=== PATIENT | female | born 1985 | race American Indian/Alaskan Native ===

== ENCOUNTER 2017-03-11 14:06 | Emergency (ER) | payer BC, OTHER ==
[2017-03-11] MEDS ORDERED: DUONEB *Not for PRN Use IH ONE (14:24)
--- NOTE | 2017-03-11 14:27 | Emergency Department Report ---
Chief Complaint: Chest Pain Stated Complaint: CHEST PAIN Time Seen by Provider: 03/11/17 14:21 - HPI History of Present Illness: pt c/o cp. pt states she has had cp recently and been seen by registered clinical dietitian PT denies hx of asthma - ROS Review of Systems: + dizziness + chest pain - Exam Physical Exam: RRR + nasal flaring MSE screening note: Focused history and physical exam performed. Due to findings the following was ordered: ekg, xr, labs, med ED Disposition for MSE Condition: Stable
[2017-03-11 14:39] VITALS: BP 125/87
[2017-03-11 14:54] LABS: Basophils % (Auto) 0.6 % (0.0-1.8); Eosinophils % (Auto) 1.4 % (0.0-4.3); Hematocrit 34.9 % (30.3-42.9); Hemoglobin 11.4 gm/dl (10.1-14.3); Mean Corpuscular HGB Conc 33 % (30-34); Mean Corpuscular Hemoglobin 27 pg (28-32); Mean Corpuscular Volume 81 fl (79-97); Platelet Count 340 K/mm3 (140-440); Red Blood Count 4.29 M/mm3 (3.65-5.03); Red Cell Distribution Width 15.2 % (13.2-15.2); White Blood Count 8.6 K/mm3 (4.5-11.0)
[2017-03-11 14:58] LABS: INR 1.05 (0.87-1.13); Partial Thromboplastin Time 30.9 Sec. (24.2-36.6)
--- NOTE | 2017-03-11 15:10 | XRay Report ---
CHEST 2 VIEWS INDICATION: Chest pain. COMPARISON: None similar at this institution. FINDINGS: PA and lateral chest radiographs demonstrate normal cardiomediastinal silhouette. Clear lungs. Intact bones. CONCLUSION: No acute disease in the chest. Thank you for the opportunity to participate in this patient's care.
[2017-03-11 15:13] LABS: Alanine Aminotransferase 19 units/L (7-56); Albumin/Globulin Ratio 1.1 %; Alkaline Phosphatase 85 units/L (35-129); Anion Gap 22 mmol/L; BUN/Creatinine Ratio 18.33; Blood Urea Nitrogen 11 mg/dL (7-17); Calcium 9.3 mg/dL (8.4-10.2); Carbon Dioxide 20 mmol/L (22-30); Chloride 100.8 mmol/L (98-107); Glucose 89 mg/dL (65-100); Potassium 3.6 mmol/L (3.6-5.0); Sodium 139 mmol/L (137-145); Total Protein 7.5 g/dL (6.3-8.2)
--- NOTE | 2017-03-24 23:46 | ED Elopement Review ---
ED Pt Elopement review - Results review Lab results: Laboratory Tests 03/11/17 03/11/17 03/11/17 14:33 14:33 14:33 WBC 8.6 RBC 4.29 Hgb 11.4 Hct 34.9 MCV 81 MCH 27 L MCHC 33 RDW 15.2 Plt Count 340 Lymph % (Auto) 28.7 Lamar % (Auto) 8.5 H Eos % (Auto) 1.4 Baso % (Auto) 0.6 Lymph # 2.5 Lamar # 0.7 Eos # 0.1 Baso # 0.1 Seg Neutrophils % 60.8 Seg Neutrophils # 5.2 PT 13.6 INR 1.05 APTT 30.9 Sodium 139 Potassium 3.6 Chloride 100.8 Carbon Dioxide 20 L Anion Gap 22 BUN 11 Creatinine 0.6 L Estimated GFR > 60 BUN/Creatinine Ratio 18.33 Glucose 89 Calcium 9.3 Total Bilirubin 0.40 AST 17 ALT 19 Alkaline Phosphatase 85 Troponin T < 0.010 NT-Pro-B Natriuret Pep Total Protein 7.5 Albumin 4.0 Albumin/Globulin Ratio 1.1 03/11/17 14:33 WBC RBC Hgb Hct MCV MCH MCHC RDW Plt Count Lymph % (Auto) Lamar % (Auto) Eos % (Auto) Baso % (Auto) Lymph # Lamar # Eos # Baso # Seg Neutrophils % Seg Neutrophils # PT INR APTT Sodium Potassium Chloride Carbon Dioxide Anion Gap BUN Creatinine Estimated GFR BUN/Creatinine Ratio Glucose Calcium Total Bilirubin AST ALT Alkaline Phosphatase Troponin T NT-Pro-B Natriuret Pep 30.97 Total Protein Albumin Albumin/Globulin Ratio - Call Back decision Pt Call Back Decision: Pt to F/U with PMD
== END 2017-03-11 17:04 | disposition left against medical advice (07) ==
LOC: ED 14:06
DX: R07.9 Chest pain, unspecified (principal); Z53.21 Procedure and treatment not carried out due to patient leaving prior to being seen by health care provider
CPT/HCPCS: 36415; 71020; 80053; 83880; 84484; 85025; 85610; 85730; 93005; 93010

== ENCOUNTER 2019-02-02 12:08 | Emergency (ER) | payer OTHER, MEDICARE ==
[2019-02-02 12:24] VITALS: BP 162/109
--- NOTE | 2019-02-02 12:24 | Emergency Department Report ---
Blank Doc - Documentation Documentation: 33 y o female with hx of HTN on meds presents with Chestpain x 3 days unresolvi ng 6/10 intensity labs, cxr
[2019-02-02 13:12] LABS: Basophils % (Auto) 0.5 % (0.0-1.8); Eosinophils # (Auto) 0.2 K/mm3 (0.0-0.4); Eosinophils % (Auto) 2.8 % (0.0-4.3); Hematocrit 33.5 % (30.3-42.9); Hemoglobin 11.1 gm/dl (10.1-14.3); Lymphocytes # (Auto) 1.6 K/mm3 (1.2-5.4); Mean Corpuscular HGB Conc 33 % (30-34); Mean Corpuscular Volume 86 fl (79-97); Monocytes # (Auto) 0.4 K/mm3 (0.0-0.8); Monocytes % (Auto) 7.9 % (0.0-7.3); Platelet Count 296 K/mm3 (140-440); Red Cell Distribution Width 14.1 % (13.2-15.2)
--- NOTE | 2019-02-02 13:18 | Emergency Department Report ---
ED Chest Pain HPI - General Chief Complaint: Chest Pain Stated Complaint: CHEST PAIN/LIGHT HEADED Time Seen by Provider: 02/02/19 12:22 Source: patient Mode of arrival: Ambulatory Limitations: No Limitations - History of Present Illness Initial Comments: 33 y o female with hx of HTN on meds presents with Chest pain x 3 days. Patient reports pain is to the left chest. Lightheadedness today. Patient denies any nausea vomiting or headache or radiation of pain. She reports her pain is at rest sharp. Patient has a surgery on the parathyroid. She has a past medical history of hypertension primary care provider is Dr. Jauregui who has not seen him in over a year. Onset/Timin -: days(s) Pain Location: left chest Severity scale (0 -10): 6 Quality: sharp Consistency: intermittent Improves With: nothing Worsens With: nothing Treatments Prior to Arrival: none Aspirin use within the Past 7 Days: (0) No - Related Data On Oral Contraceptives: No Home Medications Medication Instructions Recorded Confirmed Last Taken hydroCHLOROthiazide [Hctz] 25 mg PO QDAY 06/21/14 06/21/14 06/21/14 Allergies Allergy/AdvReac Type Severity Reaction Status Date / Time No Known Allergies Allergy Unverified 06/21/14 09:49 Heart Score - HEART Score History: Slightly suspicious EKG: Normal Age: < 45 Risk factors: 1-2 risk factors Troponin: 1-3x normal limit HEART Score: 2 ED Review of Systems ROS: Stated complaint: CHEST PAIN/LIGHT HEADED Other details as noted in HPI Comment: All other systems reviewed and negative ED Past Medical Hx - Past Medical History Hx Hypertension: Yes Additional medical history: Parathyroid - Surgical History Additional Surgical History: Parathyroidectomy - Social History Smoking Status: Never Smoker Substance Use Type: None - Medications Home Medications: Home Medications Medication Instructions Recorded Confirmed Last Taken Type hydroCHLOROthiazide [Hctz] 25 mg PO QDAY 06/21/14 06/21/14 06/21/14 History ED Physical Exam - General Limitations: No Limitations General appearance: alert, in no apparent distress - Head Head exam: Present: atraumatic, normocephalic - Eye Eye exam: Present: normal appearance - ENT ENT exam: Present: mucous membranes moist - Neck Neck exam: Present: normal inspection - Respiratory Respiratory exam: Present: normal lung sounds bilaterally. Absent: respiratory distress - Cardiovascular Cardiovascular Exam: Present: regular rate, normal rhythm. Absent: systolic murmur, diastolic murmur, rubs, gallop - GI/Abdominal GI/Abdominal exam: Present: soft, normal bowel sounds - Extremities Exam Extremities exam: Present: normal inspection - Back Exam Back exam: Present: normal inspection - Neurological Exam Neurological exam: Present: alert, oriented X3 - Psychiatric Psychiatric exam: Present: normal affect, normal mood - Skin Skin exam: Present: warm, dry, intact, normal color. Absent: rash ED Course Vital Signs 02/02/19 12:22 Temperature 98.2 F Pulse Rate 62 Respiratory 20 Rate Blood Pressure 162/109 O2 Sat by Pulse 99 Oximetry INO score - Ino Score Age > 65: (0) No Aspirin use within the Past 7 Days: (0) No 3 or more CAD Risk Factors: (0) No 2 or more Angina events in past 24 hrs: (0) No Known CAD with more than 50% Stenosis: (0) No Elevated Cardiac Markers: (0) No ST Deviation Greater than 0.5mm: (0) No INO Score: 0 ED Medical Decision Making - Lab Data Result diagrams: 02/02/19 12:51 - Radiology Data Radiology results: report reviewed Patient: JAZZ ORTEGA MR#: [id number] : 1985 Acct:[id number] Age/Sex: 33 / F ADM Date: 02/02/19 Loc: ED Attending Dr: Ordering Physician: SARAH SALAS Date of Service: 02/02/19 Procedure(s): XR chest routine 2V Accession Number(s): [id number] cc: SARAH SALAS Fluoro Time In Minutes: CHEST 2 VIEWS INDICATION: Chest pain for 3 days. COMPARISON: 03/11/2017 chest x-ray report FINDINGS: Support devices: None. Heart: Within normal limits. Lungs/pleura: No acute air space or interstitial disease. No pneumothorax. Additional findings: None. IMPRESSION: Normal chest x-ray. Signer Name: Evans Mcdaniel Jr, MD Signed: 02/02/2019 2:03 PM Workstation Name: [id number] Transcribed By: TTR Dictated By: EVANS MCDANIEL JR, MD Electronically Authenticated By: EVANS MCDANIEL JR, MD Signed Date/Time: 02/02/191402 DD/ 02 TD/TT: - Medical Decision Making 33-year-old obese female comes in for chest pain and lightheadedness for 2-3 days. Patient has a negative EKG and negative troponin labs are within normal limits. Chest x-ray is negative for any cardiopulmonary abnormalities. Discussed the patient and her blood pressures elevated. Discussed the patient she needs to follow up with her primary care provider Dr. Juventino Diop. He'll be referred to cardiology as well. Critical care attestation.: If time is entered above; I have spent that time in minutes in the direct care of this critically ill patient, excluding procedure time. ED Disposition Clinical Impression: Atypical chest pain Disposition: - TO HOME OR SELFCARE Is pt being admited?: No Does the pt Need Aspirin: No Condition: Stable Instructions: Chest Pain (ED) Additional Instructions: Continue with blood pressure medication follow up with [employer] [facility] I have listed their information below. Very important for you to follow up with her primary care provider Dr. Jauregui. The next 3-4 days. Referrals: JUVENTINO DIOP MD [Primary Care Provider] - 3-5 Days CHRISTIAN ADRIAN MD [Staff Physician] - 3-5 Days Forms: Work/School Release Form(ED)
[2019-02-02 13:38] LABS: BUN/Creatinine Ratio 20; Blood Urea Nitrogen 14 mg/dL (7-17); Calcium 9.1 mg/dL (8.4-10.2); Hemolysis Index 4
--- NOTE | 2019-02-02 14:08 | XRay Report ---
CHEST 2 VIEWS INDICATION: Chest pain for 3 days. COMPARISON: 03/11/2017 chest x-ray report FINDINGS: Support devices: None. Heart: Within normal limits. Lungs/pleura: No acute air space or interstitial disease. No pneumothorax. Additional findings: None. IMPRESSION: Normal chest x-ray. Signer Name: Evans Mcdaniel Jr, MD Signed: 02/02/2019 2:03 PM Workstation Name: [id number]
== END 2019-02-02 14:29 | disposition home or self-care (01) ==
LOC: ED 12:08
DX: R07.89 Other chest pain (principal); R42 Dizziness and giddiness; I10 Essential (primary) hypertension; Z90.89 Acquired absence of other organs
CPT/HCPCS: 36415; 71046; 80048; 84484; 84703; 85025; 93005; 93010